=== PATIENT | male | born 1985 | race Caucasian/White ===

== ENCOUNTER 2022-10-29 09:39 | Emergency (ER) | payer OTHER, SELFPAY ==
--- NOTE | ~2022-10-29 | XR_ITS ---
EXAMINATION: [id number] DATE: 10/29/2022 10:05 INDICATION: Right rib pain. Fall. TECHNIQUE: A frontal view of the chest and 2 views on 4 radiographs of the right ribs were obtained. COMPARISON: None. FINDINGS: The chest demonstrates clear lungs without pneumonia, pleural effusion, or pneumothorax. Th e heart size is normal. There is prominent extrapleural fat bilaterally. IMPRESSION: 1. No rib fracture. Reviewed, dictated and finalized at location A. IMPRESSION: 1. No rib fracture.
[2022-10-29 09:47] VITALS: BP 140/91; PULSE 78; RESP 16; TEMP 36.2; O2SAT 100
--- NOTE | 2022-10-29 10:18 | ED.GENADULT ---
HPI - General Adult General Chief complaint: Extremity Injury, Lower Stated complaint: Fall Injury/Right Side Pain Source: patient Mode of arrival: ambulatory Limitations: no limitations History of Present Illness HPI narrative: Patient presents for evaluation of an injury he sustained 4 days ago. He was climbing over a 5 ft fence trying to get away from a dog when he fell, landing on his right side. He did not hit his head. No LOC. He had some mild pain in the right lower extremity but that has resolved. Reports pain in the right anterior posterior ribs, rated between 5 and 9/10 in severity. No SOB. He smokes 1.5 ppd. Denies other injuries. He tried taking naproxen and ibuprofen for his symptoms. Medications have provided him with minor reduction of his pain. Related Data Allergies Allergy/AdvReac Type Severity Reaction Status Date / Time No Known Allergies Allergy Verified 10/29/22 09:52 Review of Systems Review of Systems: CONSTITUTIONAL: Denies fever, chills, or sweats. EYES: Denies visual changes, redness, or discharge. ENT: Denies rhinorrhea, congestion, sore throat, or otalgia. CARDIOVASCULAR: Denies chest pain, palpitations, or edema. RESPIRATORY: Denies cough or dyspnea. GASTROINTESTINAL: Denies abdominal pain, nausea, vomiting, or diarrhea. GENITOURINARY: Denies dysuria or hematuria. SKIN: Denies rash or itching. MUSCULOSKELETAL: Reports right anterior and posterior rib pain. NEUROLOGIC: Denies headache, numbness, dizziness, or weakness. PSYCHIATRIC: Denies anxiety or depression. [facility] Past Medical History Medical History (Updated 10/29/22 @ 10:31 by Leonel Lara, [employer], ) No pertinent past medical history Rib contusion Surgical History Surgical History No pertinent past surgical history Family History Family History Mother Family history non-contributory Social History Social History Smoking packs per day: 1.5 Smoking cigarettes per day: 30.0 Smoking status: Current every day smoker Alcohol intake: current Alcohol use details: 12 beers at a time, a few times per month Substance use: never Additional living arrangements comments: Lives with girlfriend Gender identity (if verbalized by the patient): Male Sexual Orientation (if Verbalized by the Patient): Straight or Heterosexual Spiritual care concerns: No Exam Narrative: GENERAL: Well-appearing, well-nourished, and in no acute distress. HEAD: Normocephalic, atraumatic. EYES: PERRLA and EOMI. ENT: Nares clear, no rhinorrhea or epistaxis. Mucous membranes moist. Oropharynx without tonsillar hypertrophy exudate or other lesions. Bilateral TMs pearly fu nonbulging NECK: Supple. No adenopathy or masses. No carotid bruits or JVD CHEST: There is tenderness to right anterior ribs without any subcutaneous emphysema present. There is some mild wheezing present. No respiratory distress. HEART: Regular rate and rhythm. No murmur heard. Normal peripheral pulses. BACK: There is tenderness over right posterior ribs without any subcutaneous emphysema. ABDOMEN: Soft, nontender, nondistended, normal active bowel sounds. EXTREMITIES: Normal range of motion. No edema. SKIN: Warm, dry, no rash. NEURO: No focal deficits. Alert and oriented x3. PSYCH: Normal mood and affect. Course Course Emergency Course: This is a 37-year-old male who presented for evaluation of chest wall injury following a fall last Friday. X-ray of ribs/chest were negative for fracture. Exam consistent with rib contusion. Encourage smoking cessation. Provider with incentive spirometer. Follow up with primary provider. Go to ER for difficulty breathing or worsening pain. Pt in agreement with plan of care. Level of Care: Express Care Visit Vital Signs Vital signs: Vital Si
== END 2022-10-29 10:35 | disposition home or self-care (01) ==
PROVIDERS: Emergency Provider Nurse Practitioner; PCP Internal Medicine
DX: S20.211A Contusion of right front wall of thorax, initial encounter (principal); W17.89XA Other fall from one level to another, initial encounter; F17.210 Nicotine dependence, cigarettes, uncomplicated
CPT/HCPCS: 71101; 99213; G0463

== ENCOUNTER 2022-11-04 18:14 | Emergency (ER) | payer OTHER, SELFPAY ==
[2022-11-04 18:22] VITALS: BP 146/106; PULSE 91; RESP 20; TEMP 36.3; O2SAT 98
--- NOTE | 2022-11-04 18:29 | ED.FALL ---
HPI - Fall General Chief Complaint: Fall Stated Complaint: Right Side Injury Time Seen by Provider: 11/04/22 18:20 Source: patient and RN notes reviewed History of Present Illness HPI Narrative: Patient is a 37-year-old male who presents to urgent care with complaints of right side pain after a fall on the . Patient was seen in the urgent care at that time and his chest x-ray was normal for rib fracture. Patient was given Vicodin at his visit and told to use Tylenol/ibuprofen as needed. Patient states he has been using the ibuprofen and Tylenol without any relief and is wanting a refill of his pain medication. Patient states he has also been taking naproxen without any relief. Patient denies any re-injury but states he feels ?popping?. No other acute complaints. No acute distress noted. Patient aware of the plan of care. Some parts of this dictation were generated by voice recognition software and may contain typographical and/or grammatical inaccuracies. Related Data Home Medications Medication Instructions Recorded Confirmed famotidine 40 mg tablet 40 mg PO DAILY 11/04/22 11/04/22 Allergies Allergy/AdvReac Type Severity Reaction Status Date / Time No Known Allergies Allergy Verified 11/04/22 18:33 Review of Systems Review of Systems: CONSTITUTIONAL: Denies fever, chills, or sweats. EYES: Denies visual changes, redness, or discharge. ENT: Denies rhinorrhea, congestion, sore throat, or otalgia. CARDIOVASCULAR: Denies chest pain, palpitations, or edema. RESPIRATORY: Denies cough or dyspnea. Reports right rib pain GASTROINTESTINAL: Denies abdominal pain, nausea, vomiting, or diarrhea. GENITOURINARY: Denies dysuria or hematuria. SKIN: Denies rash or itching. MUSCULOSKELETAL: Denies back pain, joint pain, or myalgia. NEUROLOGIC: Denies headache, numbness, or weakness. All other systems reviewed are negative, except as documented in HPI. [facility] Past Medical History Medical History (Updated 11/04/22 @ 18:46 by KEELY Steinberg) No pertinent past medical history Rib contusion Surgical History Surgical History No pertinent past surgical history Family History Family History Mother Family history non-contributory Social History Social History Smoking packs per day: 1.5 Smoking cigarettes per day: 30.0 Smoking status: Current every day smoker Alcohol intake: current Alcohol use details: 12 beers at a time, a few times per month Substance use: never Additional living arrangements comments: Lives with girlfriend Gender identity (if verbalized by the patient): Male Sexual Orientation (if Verbalized by the Patient): Straight or Heterosexual Spiritual care concerns: No Comments At the time of my signature, I reviewed and agree with the nursing past medical, surgical, social, and family history. There is no relevant family history pertinent to the patient complaint. Exam Narrative: GENERAL: This is a well-nourished, well-developed patient, in no apparent distress. HEAD: normocephalic, atraumatic. EYES: PERRL. Sclera clear/white. Vision is grossly intact. EARS: External ears normal NOSE: External nose normal with no obvious nasal discharge, nares without redness, no rhinorrhea. THROAT: Mucous membranes moist NECK: Neck supple CARDIOVASCULAR: Regular rate and rhythm RESPIRATORY: Clear to auscultation. Breath sounds equal bilaterally. No wheezes, rales, or rhonchi. SKIN: warm, intact with no suspicious lesions or rash, good texture and turgor. NEURO: awake, alert, and oriented to person, place and time. There were no obvious focal neurologic abnormalities. EXTREMITIES: No clubbing, cyanosis, or edema. Course Course Level of Care: Express Care Visit Vital Signs Vital signs: Vital Signs Temperatu
== END 2022-11-04 18:50 | disposition home or self-care (01) ==
PROVIDERS: Emergency Provider Nurse Practitioner Family; PCP Internal Medicine
DX: S20.211A Contusion of right front wall of thorax, initial encounter (principal); F17.210 Nicotine dependence, cigarettes, uncomplicated; Z79.1 Long term (current) use of non-steroidal anti-inflammatories (NSAID); X58.XXXA Exposure to other specified factors, initial encounter
CPT/HCPCS: 99211; G0463